=== PATIENT | female | born 2005 | race African-American/Black ===

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

== ENCOUNTER 2023-12-06 14:55 | Emergency (ER) | payer MEDICAID ==
[~2023-12-06] VITALS: Ht 167.6 cm; Wt 82.0 kg
[2023-12-06 15:11] VITALS: BP 140/83; PULSE 90; RESP 16; TEMP 98; O2SAT 99
[2023-12-06] MEDS ORDERED: NAPR500T7 MT (16:44)
== END 2023-12-06 16:57 | disposition home or self-care (01) ==
LOC: ER 15:11
DX: M25.511 Pain in right shoulder (principal); M79.621 Pain in right upper arm
CPT/HCPCS: 73030; 99283